=== PATIENT | female | born 1960 | race Hispanic/Latino ===

== ENCOUNTER 2018-04-13 12:00 | Outpatient (CLI) | payer OTHER | END 2018-04-13 12:01 | disposition home or self-care (01) | LOC: LAB 12:00 → LABHHL 12:00 | PROVIDERS: ATTEND Surgery | DX: C50.911 Malignant neoplasm of unspecified site of right female breast (principal) | CPT/HCPCS: 88305; 88341; 88342 ==

== ENCOUNTER 2018-04-24 12:26 | Outpatient (CLI) | payer OTHER ==
--- NOTE | 2018-04-25 15:37 | Magnetic Resonance Report ---
BILATERAL BREAST MRI WITHOUT AND WITH CONTRAST: 04/24/18 12:26:00 CLINICAL: Newly diagnosed right breast cancer. Status post ultrasound guided biopsy of a spiculated right breast mass in the lower outer quadrant on 04/13/18. 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 COMPARISON:04/13/18 right mammogram. TECHNIQUE: Axial 1.0-mm T1 without, axial high resolution 2.0-mm T2 and axial 1.0-mm dynamic Vibrant high-resolution postcontrast T1 fat saturation sequences on a 1.5 Marissa magnet. The examination was performed with an 8 channel dedicated [place] breast coil. Post processing with CAD and subtraction was performed on an [employer] workstation. 17.0 cc of Multihance was injected without incident for the contrast portion of the exam. Consent was obtained prior to the administration of the contrast. FINDINGS: Right: Moderate background parenchymal enhancement. The known cancer is a spiculated lower outer quadrant mass 5.7 cm from the nipple measuring 3.2 x 2.8 x 2.0 cm. A biopsy clip is identified at the margin of the mass. The mass demonstrates heterogeneous enhancement with mixed kinetics, 409% peak enhancement, 62% type I persistent, 17% type II plateau and 21% type III washout waveforms. A second irregular suspicious mass is identified approximately 1.5 cm directly posterior to the known cancer. An enhancing linear structure connects the 2 masses. The second mass measures 10.1 x 6.6 x 4.4 mm. It demonstrates heterogeneous enhancement with mixed kinetics, 272% peak enhancement and 62% type III washout. The 2 lesions together measure approximately 4 cm maximum diameter. Lesion 3 is an irregular upper outer quadrant enhancing mass 2.6 cm from the nipple measuring 7.5 x 5.0 x 3.5 mm. It demonstrates heterogeneous enhancement with mixed kinetics, 203% peak enhancement and 54% type III washout. Lesion 4 is an irregular enhancing mass in the upper inner quadrant 6.1 cm from the nipple measuring 4.3 x 3.1 x 2.8 mm. It demonstrates heterogeneous enhancement with mixed kinetics, 211% peak enhancement and 71% type III washout. Lesion 5 is an oval upper inner quadrant mass 6 cm from the nipple measuring 1.7 x 1.5 x 1.0 cm. It correlates with a mass on the mammogram that has been stable since 2012. It also demonstrates a benign enhancement pattern with 68% type I persistent waveform. No suspicious right axillary or right internal mammary lymph nodes. Left: Mild background parenchymal enhancement. A probably benign oval circumscribed lower inner quadrant mass 1.8 cm from the nipple measures 8.8 x 5.9 x 4.3 mm. It demonstrates heterogeneous enhancement with 96% type I persistent and 0% type III washout. This mass is not identified mammographically. No suspicious left axillary or left internal mammary lymph nodes. IMPRESSION: 1. Multicentric right breast cancer with a dominant 3.2 cm lower outer quadrant mass approximately 6 cm from the nipple and and at least 3 additional highly suspicious masses. 2. A benign 1.7 cm right upper inner quadrant mass. 3. A probably benign 9 mm left lower inner quadrant breast mass. Recommend targeted left breast ultrasound to confirm benign features by ultrasound. RIGHT BI-RADS 6 -- Known Cancer LEFT BI-RADS 0 -- Need Additional Imaging
== END 2018-04-24 12:27 | disposition home or self-care (01) ==
LOC: SPVIMAG 12:26
PROVIDERS: ATTEND Surgery
DX: C50.511 Malignant neoplasm of lower-outer quadrant of right female breast (principal); N63.12 Unspecified lump in the right breast, upper inner quadrant
CPT/HCPCS: A9577; C8908; 77049

== ENCOUNTER 2018-05-10 13:47 | Outpatient (CLI) | payer OTHER ==
--- NOTE | 2018-05-10 15:57 | History and Physical Report ---
History of Present Illness Date of examination: 05/10/18 Chief complaint: mri detected lesion lt. breast; Rt. breast ca
--- NOTE | 2018-05-10 15:59 | Procedure Note ---
Date of procedure: 05/10/18 Pre-op diagnosis: lt. breast lesion Post-op diagnosis: same Procedure: u/s guided bx Anesthesia: local Surgeon: FORD KNUTSON Estimated blood loss: none Pathology: list (lt breast tissue) Specimen disposition: to lab Condition: stable Disposition: same day
--- NOTE | 2018-05-10 16:10 | Mammography Report ---
Ultrasound-guided left breast biopsy, clip placement, 2 view mammography: Patient presents with known right breast cancer and MR finding of low suspicion small left breast nodule. Left breast ultrasound imaging today demonstrates a circumscribed markedly hypoechoic nodule measuring 4 x 8 mm in the approximate location as the MR finding being located at approximately 8:00 to 9:00. Initially the skin was cleansed and local anesthesia applied prior to introduction of a small needle into the lesion to exclude a cyst. The lesion slightly enlarged following this manipulation with some blood being aspirated. The patient was then draped and the skin was again cleansed. 1% lidocaine was used for local anesthesia. Under ultrasound guidance a 13-gauge needle guide was percutaneously placed through which a 14-gauge disposable Bard biopsy device was used to take multiple biopsies under ultrasound guidance. The a marker was placed however the positioning of the marker could not be clearly visualized. A second marker was then placed. The patient's entrance site was bandaged with a waterseal. A two-view mammogram confirm that both of these markers are adjacent to each other in the appropriate location. The patient was given followup instructions and discharged without complication.
== END 2018-05-10 13:48 | disposition home or self-care (01) ==
LOC: SPVWC 13:47
PROVIDERS: ATTEND Surgery
DX: D24.2 Benign neoplasm of left breast (principal); C50.911 Malignant neoplasm of unspecified site of right female breast; Z79.899 Other long term (current) drug therapy; Z87.891 Personal history of nicotine dependence
CPT/HCPCS: 19083; 77065; 88305; A4648

== ENCOUNTER 2018-06-08 06:08 | Observation (INO) | payer OTHER ==
[2018-06-05 12:37] LABS: Basophils # (Auto) 0.1 K/mm3 (0.0-0.1); Basophils % (Auto) 0.7 % (0.0-1.8); Eosinophils # (Auto) 0.2 K/mm3 (0.0-0.4); Eosinophils % (Auto) 2.5 % (0.0-4.3); Hematocrit 42.1 % (30.3-42.9); Hemoglobin 14.6 gm/dl (10.1-14.3); Lymphocytes # (Auto) 2.4 K/mm3 (1.2-5.4); Lymphocytes % (Auto) 26.6 % (13.4-35.0); Mean Corpuscular HGB Conc 35 % (30-34); Mean Corpuscular Volume 88 fl (79-97); Monocytes # (Auto) 0.8 K/mm3 (0.0-0.8); Monocytes % (Auto) 8.9 % (0.0-7.3); Platelet Count 357 K/mm3 (140-440); Red Cell Distribution Width 13.1 % (13.2-15.2)
--- NOTE | 2018-06-05 12:58 | Anesthesia Consultation ---
Anesthesia Consult and Med Hx Date of service: 06/05/18 - Airway Anesthetic Teeth Evaluation: Poor ROM Head & Neck: Adequate Mental/Hyoid Distance: Adequate Mallampati Class: Class II Intubation Access Assessment: Probably Good - Pulmonary Exam CTA: Yes - Cardiac Exam Cardiac Exam: RRR - Pre-Operative Health Status ASA Pre-Surgery Classification: ASA3 Proposed Anesthetic Plan: General Nerve Block: PEC - Pulmonary Hx Smoking: Yes (FOR 45YRS; QUIT JAN 2017) Hx Respiratory Symptoms: No COPD: Yes (PRN ATROVENT) Home Oxygen Therapy: No - Cardiovascular System Hx Hypertension: Yes Hx Heart Attack/AMI: Yes (1998; medical management only) Hx Percutaneous Transluminal Coronary Angioplasty (PTCA): No Hx Cardia Arrhythmia: No - Central Nervous System Hx Seizures: No CVA: No Hx Back Pain: Yes (ossacional neck pain) Hx Psychiatric Problems: No - Gastrointestinal Hx Gastroesophageal Reflux Disease: No - Endocrine Hx Renal Disease: No Hx Liver Disease: No Hx Insulin Dependent Diabetes: No Hx Non-Insulin Dependent Diabetes: No Hx Thyroid Disease: No - Hematic Hx Anemia: No - Other Systems Hx Cancer: Yes (breast) Hx Obesity: No - Additional Comments Anesthesia Medical History Comments: No prior GA or family hx anesthetic complications. >4 mets functional capacity. Consented for preop PEC block.
[2018-06-05 12:59] LABS: Alanine Aminotransferase 20 units/L (7-56); Albumin 4.4 g/dL (3.9-5); BUN/Creatinine Ratio 15; Blood Urea Nitrogen 9 mg/dL (7-17); Calcium 9.2 mg/dL (8.4-10.2); Hemolysis Index 13
[~2018-06-08 06:08] MED LIST: ANCEF/STERILE WATER 2 GM/20 ML 2 GM/20 ML SYRINGE IV NR; LACTATED RINGERS 1,000 ML IV SCH; NEURONTIN PO NR; PROVENTIL IH NR; SUBLIMAZE IV PRN; VERSED IV NR
[2018-06-08] MEDS ORDERED: NACL BACTERIOSTATIC INFILTRATI ONE (06:27)
[2018-06-08] MEDS ORDERED: MARCAINE 0.5% INFILTRATI ONE (07:31)
[2018-06-08] MEDS ORDERED: DECADRON ONE ×2 (07:31→07:46)
[2018-06-08] MEDS ORDERED: ZOFRAN ONE (07:46)
[2018-06-08] MEDS ORDERED: XYLOCAINE MPF 2% ONE (07:46)
[2018-06-08] MEDS ORDERED: ZEMURON IV ONE (07:46)
[2018-06-08] MEDS ORDERED: SUBLIMAZE ONE (07:46)
[2018-06-08] MEDS ORDERED: DIPRIVAN 10 MG/ML IV ONE (07:46)
[2018-06-08] MEDS ORDERED: NACL P/F VIAL (10 ML) 10 ML ONE (07:52)
[2018-06-08] MEDS ORDERED: METHYLENE BLUE ONE (07:52)
[2018-06-08] MEDS ORDERED: DILAUDID IV PRN (08:01)
--- NOTE | 2018-06-08 08:03 | Anesthesia Day of Surgery ---
Anesthesia Day of Surgery - Day of Surgery Patient Examined: Yes Patient H&P Reviewed: Yes Patient is NPO: Yes
[2018-06-08] MEDS ORDERED: NEO SYNEPHRINE ONE (08:13)
[2018-06-08] MEDS ORDERED: NACL P/F VIAL (10 ML) INFILTRATI ONE (08:30)
[2018-06-08] MEDS ORDERED: METHYLENE BLUE IRRIGATION ONE (08:30)
[2018-06-08] MEDS ORDERED: WATER FOR IRRIG STERILE IR ONE (09:20)
[2018-06-08] MEDS ORDERED: TORADOL ONE (11:03)
--- NOTE | 2018-06-08 11:13 | Short Stay Summary ---
Short Stay Documentation Date of service: 06/08/18 - History H&P: obtained from office - Allergies and Medications Current Medications: Allergies No Known Allergies Allergy (Verified 06/04/18 17:11) Home Medications Medication Instructions Recorded Confirmed Last Taken Type AtorvaSTATin [Lipitor] 20 mg PO QDAY 06/04/18 06/04/18 06/07/18 History Candesartan/Hydrochlorothiazid 1 each PO DAILY 06/04/18 06/04/18 06/07/18 His tory [Atacand Hct 32-12.5 mg Tab] Ipratropium (Nf) [Atrovent] 2 puff IH Q6HR PRN 06/04/18 06/08/18 06/08/18 05:00 History Active Medications Albuterol (Proventil) 2.5 mg IH PREOP NR Stop: 06/08/18 23:59 Last Admin: 06/08/18 07:04 Dose: 2.5 mg Documented by: Celecoxib (Celebrex) 200 mg PO PREOP NR Stop: 06/08/18 23:59 Last Admin: 06/08/18 06:30 Dose: 200 mg Documented by: Fentanyl (Sublimaze) 100 mcg IV ONCE PRN PRN Reason: sedation for nerve block Last Admin: 06/08/18 07:36 Dose: 100 mcg Documented by: Gabapentin (Neurontin) 300 mg PO PREOP NR Stop: 06/08/18 23:59 Last Admin: 06/08/18 06:30 Dose: 300 mg Documented by: Hydromorphone HCl (Dilaudid) 0.5 mg IV Q10MIN PRN PRN Reason: Pain , Severe (7-10) Stop: 06/08/18 16:00 Cefazolin Sodium (Ancef/Sterile Water 2 Gm/20 Ml) 2 gm in 20 mls @ 80 mls/hr IV PREOP NR; Protocol Stop: 06/08/18 23:59 Lactated Ringer's (Lactated Ringers) 1,000 mls @ 100 mls/hr IV DIRECT LEISA Last Admin: 06/08/18 06:45 Dose: 100 mls/hr Documented by: Midazolam HCl (Versed) 2 mg IV PREOP NR Stop: 06/08/18 23:59 Last Admin: 06/08/18 07:36 Dose: 2 mg Documented by: - Brief post op/procedure progress note Date of procedure: 06/08/18 Pre-op diagnosis: Right breast cancer of lower outer quadrant Post-op diagnosis: same Procedure: Right total mastectomy with SLNB Anesthesia: GETA Findings: Radiograph specimen with clip present; x3 SLN with one SLN with questionable atypia vs reactive lymph nodes Surgeon: JOB CHOWDARY Estimated blood loss: minimal Pathology: list (right total mastectomy; SLNx3) Specimen disposition: to lab Condition: stable - Disposition Condition at discharge: Good Disposition: [id number]/TX-02 SHRT-TRM GEN HOSP IP Short Stay Discharge Plan Activity: other (no heavy lifting) Diet: regular Wound: keep clean and dry (wear breast binder) Follow up with: HALLEY RANDOLPH MD [Primary Care Provider] - 7 Days JOB CHOWDARY MD [Staff Physician] - 7 Days
--- NOTE | 2018-06-08 11:26 | Operative Report ---
Operative Report Operative Report: Date of Service: June 08, 2018 Preoperative diagnosis: Right breast cancer of the lower outer quadrant Postoperative diagnosis: Same Procedure: Right total mastectomy with sentinel lymph node biopsy Surgeon: Shayy Cobb M.D. Anesthesia: Gen. Findings: Right breast clip present within right total mastectomy, x3 right SLNs with 2 SLNs negative for malignancy and 1 SLN indeterminate with findings of atypia or reactive lymph node Complications: None Drains: One 19 Fr FABIANO Estimated blood loss: Minimal Disposition: PACU in good condition Indications for operative procedure: This is a 57-year-old lady with newly diagnosed right breast cancer of the lower outer quadrant IDCA grade 3 [id number] ER/MS positive. Recommendations were to proceed with right total mastectomy given multicentric right breast and patient wished to proceed with the above. She declined PRS. Procedure in detail: Anesthesia placed right pectoral muscle block prior to going to the operating room. The patient was taken to the operating room and was placed supine. Gen. anesthesia was administered. The right nipple was injected with radioisotope and 1 cc of methylene blue dye with 1 cc of saline. Right breast and axilla was prepped and draped in the normal sterile operative fashion. Timeout was performed. Typical mastectomy incision marking was made, right mastectomy including known cancer location at the 7/8:00 position. Attention was then taken towards the right breast. A gamma probe was inserted into the axilla to identify the sentinel lymph node location with uptake present. A skin incision was made with a 10 blade knife and dissection taken down to the subcutaneous tissues. First began raising of the superior flap to the level of the clavicle and posteriorly to the pectoralis muscle. Then proceeded with raising of the medial flap to the level of the sternum and posteriorly to the pectoralis muscle. Followed by raising of the lateral flap to the level of the latissimus dorsi muscle and taken down posteriorly. The gamma probe was inserted into the axilla. The axillary fascia was opened and 3 SLNS were identified. 2 SLNs were negative for malignancy and 1 SLN was indeterminate with findings of atypia vs reactive lymph node and additional tissue unable to be processed for frozen given no tissue would be remaining for permanent processing. Then proceeded with raising of the inferior flap to the level of the inframammary fold taken posterior to the pectoralis muscle. The mastectomy/breast was removed from the pectoralis muscle without incident. The specimen was appropriately marked and sent to radiology with findings of 1 breast clip present and sent to pathology. Hemostasis was noted. The chest wall was irrigated and suctioned. Hemostasis was obtained. One 19 [place] FABIANO drain was placed. The subcutaneous tissues were closed using an interrupted 3-0 Vicryl followed by closing of the skin using a running 4-0 Monocryl and dermabond. She tolerated surgery very well and was awaken from anesthesia and transported to PACU in good conidition. The decision was made not to proceed with a right ALND given no definitive diagnosis of malignancy of SLN that was indeterminate.
[2018-06-08] MEDS ORDERED: TYLENOL PO PRN (11:32)
[2018-06-08] MEDS ORDERED: PERCOCET 5/325 PO PRN (11:32)
[2018-06-08] MEDS ORDERED: BENADRYL PO PRN (11:32)
[2018-06-08] MEDS ORDERED: REGLAN PO PRN (11:32)
[2018-06-08] MEDS ORDERED: ZOFRAN IV PRN (11:32)
[2018-06-08] MEDS ORDERED: SODIUM CHLORIDE FLUSH SYRINGE 10 ML IV PRN (11:32)
[2018-06-08] MEDS ORDERED: MORPHINE IV PRN (11:35)
[2018-06-08] MEDS ORDERED: LACTATED RINGERS 1,000 ML IV SCH (12:00)
--- NOTE | 2018-06-08 12:43 | Mammography Report ---
SPECIMEN RADIOGRAPH right BREAST: 06/08/18 06:08:00 CLINICAL: Multicentric right breast cancer. FINDINGS: A mass with a biopsy clip, a second 1.3 cm mass approximately 4 cm from that mass and a second biopsy clip with no identifiable mass identified within the specimen.
[2018-06-08] MEDS ORDERED: COLACE PO SCH (22:00)
[2018-06-09 07:57] VITALS: BP 104/61
--- NOTE | 2018-06-09 09:00 | Progress Note ---
Assessment and Plan This is a 57 year old lady POD#1 right total mastectomy with SLNB. 1. Pain in good control. 2. Right chest incision healing well. 3. FABIANO drain education. 4. OOB to hallway. 5. D/C planning for today. Subjective Date of service: 06/09/18 Principal diagnosis: Stage II right breast cancer Interval history: This is a 57 year old lady with Stage II right breast cancer of the lower outer quadrant, POD#1 right mastectomy with SLND Objective - Constitutional Vitals: Vital Signs - 12hr 06/09/18 06/09/18 06/09/18 00:10 00:14 03:42 Temperature 98.5 F 98.5 F 98.4 F Pulse Rate 100 H 98 H Respiratory 16 16 14 Rate Blood Pressure 100/52 Blood Pressure 100/52 122/62 [Left] O2 Sat by Pulse 95 97 Oximetry 06/09/18 06/09/18 03:45 07:53 Temperature 98.4 F 98.3 F Pulse Rate 84 Respiratory 14 18 Rate Blood Pressure 122/62 Blood Pressure 104/61 [Left] O2 Sat by Pulse Oximetry General appearance: Present: no acute distress - EENT Eyes: PERRL ENT: hearing intact, clear oral mucosa, dentition normal Ears: bilateral: normal - Neck Neck: supple, normal ROM - Respiratory Respiratory effort: normal Respiratory: bilateral: CTA - Breasts Breasts: other (right chest incision healing well, no hematoma; inc c/d/i; skin well perfused; FABIANO drain to bulb suction) - Cardiovascular Rhythm: regular Extremities: no ischemia, pulses intact, pulses symmetrical, No edema, normal temperature, normal color, Full ROM - Gastrointestinal General gastrointestinal: Present: soft, non-tender, non-distended Rectal Exam: deferred - Genitourinary Female genitourinary: deferred - Integumentary Integumentary: clear, warm, dry - Musculoskeletal Musculoskeletal: strength equal bilaterally - Neurologic Neurologic: CNII-XII intact, moves all extremities, gait normal - Psychiatric Psychiatric: appropriate mood/affect, intact judgment & insight, memory intact, cooperative - Labs CBC & Chem 7: 06/05/18 11:55 06/05/18 11:55 Medications & Allergies - Medications Allergies/Adverse Reactions: Allergies No Known Allergies Allergy (Verified 06/04/18 17:11) Home Medications: Home Medications Medication Instructions Recorded Confirmed Last Taken Type AtorvaSTATin [Lipitor] 20 mg PO QDAY 06/04/18 06/04/18 06/07/18 History Candesartan/Hydrochlorothiazid 1 each PO DAILY 06/04/18 06/04/18 06/07/18 History [Atacand Hct 32-12.5 mg Tab] Ipratropium (Nf) [Atrovent] 2 puff IH Q6HR PRN 06/04/18 06/08/18 06/08/18 05:00 History HYDROcodone/APAP 5-325 [[place] 1 each PO Q6HR PRN #30 tablet 06/09/18 Unknown Rx 5/325] Active Medications: Generic Name Dose Route Start Last Admin Trade Name Freq PRN Reason Stop Dose Admin Acetaminophen 650 mg 06/08/18 11:32 06/08/18 19:39 Tylenol PO 650 mg Q6H PRN Administration Pain MILD(1-3)/Fever >100.5/YADAV Diphenhydramine HCl 25 mg 06/08/18 11:32 Benadryl PO Q8H PRN Itching Docusate Sodium 100 mg 06/08/18 22:00 06/08/18 21:38 Colace PO 100 mg BID LEISA Administration Fentanyl 100 mcg 06/08/18 06:00 06/08/18 07:36 Sublimaze IV 100 mcg ONCE PRN Administration sedation for nerve block Lactated Ringer's 1,000 mls @ 100 mls/hr 06/08/18 06:00 06/08/18 06:45 Lactated Ringers IV 100 mls/hr DIRECT LEISA Administration Lactated Ringer's 1,000 mls @ 125 mls/hr 06/08/18 12:00 Lactated Ringers IV DIRECT LEISA Metoclopramide HCl 10 mg 06/08/18 11:32 Reglan PO Q6H PRN Nausea And Vomiting Morphine Sulfate 2 mg 06/08/18 11:35 Morphine IV Q4H PRN Pain, Moderate (4-6) Ondansetron HCl 4 mg 06/08/18 11:32 Zofran IV Q8H PRN N/V unrelieved by Reglan Oxycodone/Acetaminophen 1 tab 06/08/18 11:32 Percocet 5/325 PO Q6H PRN Pain, Moderate (4-6) Sodium Chloride 10 ml 06/08/18 11:32 Sodium Chloride Flush Syringe 10 Ml IV PRN PRN LINE FLUSH
== END 2018-06-09 09:52 | disposition home or self-care (01) ==
LOC: OR 06:08 → OB 11:32
PROVIDERS: ADMIT Surgery; ATTEND Surgery
DX: C50.919 Malignant neoplasm of unspecified site of unspecified female breast (principal); C50.511 Malignant neoplasm of lower-outer quadrant of right female breast
CPT/HCPCS: 19303; 36415; 64450; 76098; 78800; 80053; 85025; 88307; 88309; 88331; 88333; 88342; A9541; G0378; J0690; J1100; J1885; J2250; J2370; J2405; J2704; J3010; J7120; Q9968

== ENCOUNTER 2018-08-13 11:06 | Outpatient (CLI) | payer OTHER ==
--- NOTE | 2018-08-13 14:25 | Mammography Report ---
BONE DEXA:08/13/18 11:06:00 CLINICAL: Postmenopausal.History of left breast cancer and on an aromatase inhibitor. TECHNIQUE: Two site bone DEXA performed on an Hologic scanner. FINDINGS: The average BMD of the lumbar spine L1-L4 is 1.100g/cm squared with a T-score of +0.5 and a Z-score of +1.8. The average BMD of the left hip is 0.919g/cm squared with a T-score of -0.2 and a Z-score of 0.7. IMPRESSION: 1. WHO classification: Normal with ridge fracture risk based on lumbar spine measurements. 2. WHO classification: Osteopenia with increased fracture risk based on left hip measurements. RECOMMENDATION: Clinical correlation and routine screening. DEFINITIONS: BMD = Bone Mineral Density T-score = BMD related to mean peak bone mass of young adult (mean expressed in Standard Deviation) Z-score = Age matched BMD expressed in SD World Health Organization (WHO) Diagnostic Criteria Normal T-score > -1 SD Osteopenia T-score between -1 and -2.4 SD Osteoporosis T-score -2.5 SD or below NOTE: BMD is not the only risk factor for fracture. One should also consider factors such as the patient's age, risk of falling, previous osteoporotic fracture, family history of osteoporotic fractures, current smoker, and low body weight. Z-scores are not calculated if >80 years of age.
== END 2018-08-13 11:07 | disposition home or self-care (01) ==
LOC: SPVWC 11:06
PROVIDERS: ATTEND Internal Medicine Hematology & Oncology
DX: M85.88 Other specified disorders of bone density and structure, other site (principal); C50.511 Malignant neoplasm of lower-outer quadrant of right female breast; I10 Essential (primary) hypertension; E78.00 Pure hypercholesterolemia, unspecified; J44.9 Chronic obstructive pulmonary disease, unspecified; Z78.0 Asymptomatic menopausal state
CPT/HCPCS: 77080

== ENCOUNTER 2020-04-23 13:06 | Outpatient (CLI) | payer OTHER ==
--- NOTE | 2020-04-24 13:21 | Mammography Report ---
DIGITAL SCREENING MAMMOGRAM WITH TOMOSYNTHESIS WITH CAD, 04/23/2020 CLINICAL INFORMATION / INDICATION: Routine Screening Mammography. TECHNIQUE: Digital left 2D and 3D mammography with tomosynthesis was obtained in the craniocaudal an d mediolateral oblique projections. Computer-Aided Detection (CAD) analysis was used for interpretat ion of this study. COMPARISON: 04/18/2019 FINDINGS: Breast Density: There are scattered areas of fibroglandular density. No dominant mass, suspicious calcifications, or architectural distortion in either breast. Biopsy clips again noted. There is also stable left-sided nodularity IMPRESSION: No mammographic evidence of malignancy. Follow up recommendation: Routine yearly BI-RADS Category 2: Benign. A "normal" or negative report should not discourage follow up or biopsy of a clinically significant f inding. A written summary of these findings will be mailed to the patient. The patient will be entered into a mammography reporting system which will generate a reminder letter for the patient's next appointmen t at the appropriate interval. The [employer] recommends yearly mammograms starting at age 40 and continuing as l cesar as a woman is in good health. Breast MRI is recommended for women with an approximate 20-25% or greater lifetime risk of breast cancer, including women with a strong family history of breast or ova salud cancer or who have been treated for Hodgkin's disease. Signer Name: Parish Latham MD Signed: 04/24/2020 1:17 PM Workstation Name: [id number]
== END 2020-04-23 13:07 | disposition home or self-care (01) ==
LOC: SPVWC 13:06
PROVIDERS: ATTEND Surgery
DX: Z12.31 Encounter for screening mammogram for malignant neoplasm of breast (principal)
CPT/HCPCS: 77063